=== PATIENT | male | born 1990 | race Caucasian/White ===

== ENCOUNTER 2018-08-06 02:00 | Emergency (ER) | payer SELFPAY ==
[2018-08-06 02:05] VITALS: BP 129/81
[2018-08-06] MEDS ORDERED: BESIFLOXACIN HCL 0.6% OPH SUSP 5 ML BOTTLE OU ONE (02:19)
--- NOTE | 2018-08-06 02:23 | ER Document Report ---
ED General - General Chief Complaint: Redness of Eye Stated Complaint: EYE PROBLEM Time Seen by Provider: 08/06/18 02:15 Primary Care Provider: MARIBEL MELCHOR MD [ACTIVE STAFF] - 08/08/18 Notes: Patient is 27-year-old male who presents with complaint of redness and irritation to the eye. Patient says it first on left eye. She states that over time he started developing right eye as well. He said some drainage from both eyes now. He said some congestion but says he has chronic congestion. No fevers. No blurred vision. He does not wear contacts. He denies work around bright lights or welding. 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 He denies any foreign body sensation in his eye. TRAVEL OUTSIDE OF THE [place] IN LAST 30 DAYS: No - Related Data Allergies/Adverse Reactions: No Known Allergies Allergy (Unverified 08/06/18 02:37) Past Medical History - Social History Smoking Status: Unknown if Ever Smoked Frequency of alcohol use: None Drug Abuse: None Family History: Reviewed & Not Pertinent Review of Systems - Review of Systems Notes: My Normal Review Basic REVIEW OF SYSTEMS: CONSTITUTIONAL : Denies fever, chills, or sweats. Denies recent illness. EENT: Eye irritation NEUROLOGICAL: Denies headache. ALL OTHER SYSTEMS REVIEWED AND NEGATIVE. Physical Exam - Vital signs Vitals: Temp Pulse Resp BP Pulse Ox 98.9 F 84 16 129/81 H 98 08/06/18 02:04 08/06/18 02:04 08/06/18 02:04 08/06/18 02:04 08/06/18 02:04 - Notes Notes: General Appearance: Well nourished, alert, cooperative, no acute distress, no obvious discomfort. Vitals: reviewed, See vital signs table. Head: no swelling or tenderness to the head Eyes: Erythema in both eyes. Some yellowish drainage started to develop. Good extraocular motion. No hypopyon. Corneas clear. Mouth: No decreasd moisture Throat: No tonsillar inflammation, No airway obstruction, No lymphadenopathy Neuro: speech clear, oriented x 3, normal affect, responds appropriately to questions. Course - Re-evaluation Re-evalutation: 08/06/18 05:40 Patient has what appears to be conjunctivitis. I will place him on antibiotic eyedrops. I informed him if he is not improving in 3 days and he should follow- up with dealer compliance representative. I encouraged him return to ER if he has worsening redness, swelling of the eye, fevers, or if he feels unwell. Patient agrees with plan will be discharged home. Dictation of this chart was performed using voice recognition software; therefore, there may be some unintended grammatical errors. - Vital Signs Vital signs: Temp Pulse Resp BP Pulse Ox 98.9 F 84 16 129/81 H 98 08/06/18 02:04 08/06/18 02:04 08/06/18 02:04 08/06/18 02:04 08/06/18 02:04 Discharge - Discharge Clinical Impression: Conjunctivitis Qualifiers: Conjunctivitis type: unspecified Laterality: bilateral Qualified Code(s): H10.9 - Unspecified conjunctivitis Condition: Good Disposition: HOME, SELF-CARE Additional Instructions: Please apply 1 drop of the besifloxacin eyedrops in each eye 3 times a day for 7 days. Please call the dealer compliance representative, Dr. Melchor, for reevaluation if you are not noticing any improvement after 2 days. Please return to ER immediately if your eyes become more red, more painful, no or appear to be more swollen. Please wash your hands any time that you touch your eyes. Referrals: MARIBEL MELCHOR MD [ACTIVE STAFF] - 08/08/18
[2018-08-06] MEDS ORDERED: BESIFLOXACIN HCL 0.6% OPH SUSP 5 ML BOTTLE ONE (03:22)
== END 2018-08-06 03:32 | disposition home or self-care (01) ==
LOC: ER 02:00
DX: H10.9 Unspecified conjunctivitis (principal)
CPT/HCPCS: 99282